=== PATIENT | female | born 1950 | race Caucasian/White ===

== ENCOUNTER → 2016-12-04 | Outpatient (CLI) | payer MEDICARE, OTHER ==
[~2016-12-04] MED LIST: ACID REDUCER20 MG PO; ARICEPT PO; ASPIRIN81 M2 PO; CELEBREX PO; COUMADIN5 MG PO; DURAGESIC100 MCG EXT; FUROSEMIDE40 MG PO; LANTUS SOLOSTAR3 ML SQ; LIPITOR40 MG DOB; NEURONTIN800 MG DOB; VERAPAMIL ER120 MG PO
--- NOTE | ~2016-12-04 | CR150 ---
[facility] A Service of [facility] RADIOLOGY TEXT RESULTS PATIENT: CRISTY GARCIA [facility] UNIT #: [id number] AGE: [address]: Lior Schultz MD SEX: F ORDER DR: [id number] [address] [address] [id number] O MR#: [id number] Acc #: [id number] NAME: CRISTY GARCIA : 1950 SEX: F STUDY DATE/TIME: 12/04/2016 14:22 [facility] ROOM: STUDY DESCRIPTION: CR Hip Min 2 Views Lt Attending Physician: Lior Schultz M.D. Referring Physician: Lior Schultz M.D. Ordering Physician: Physician Non-Staff Primary Care Physician: Fam Michaud Jr., M.D. MEDICAL IMAGING REPORT This report is preliminary unless electronic signature is present. EXAM Left hip series 12/04/16 HISTORY Evaluate for degenerative disc disease. Back problems, fall ruptured discback problems, pain, bilateral hip pain. FINDINGS AP radiograph of the pelvis presented with AP internal-external rotation views of the left hip. There is an inferior vena caval filter incompletely visualized at the L4 vertebral body level. Moderate to marked degenerative change suggested lower lumbar spine. Degenerative changes in the bilateral sacroiliac joints right greater than left. The bony ring of pelvis is intact. There is mild degenerative change suggested in the bilateral hip joints. The bilateral proximal femurs are intact. No acute appearing soft tissue abnormality. There are atherosclerotic arterial calcifications. Visualized bowel gas pattern normal. Dictated by... Fam Trujillo M.D. THIS IS AN ELECTRONICALLY VERIFIED REPORT Fam Trujillo M.D. at 12/05/2016 6:02 PM KANCHAN/zhanna TD: 12/05/2016 13:46 JOB #: [id number] [facility] A Service [facility] RADIOLOGY TEXT RESULTS PATIENT: CRISTY GARCIA [facility] UNIT #: [id number] AGE: [address]: Lior Schultz MD SEX: F ORDER DR: MEDICAL IMAGING REPORT Page 1 of 1
--- NOTE | ~2016-12-04 | CR151 ---
[facility] A Service of [facility] RADIOLOGY TEXT RESULTS PATIENT: CRISTY GARCIA LOCATION: [facility] : 48 UNIT #: [id number] AGE: [address]: Lior Schultz MD SEX: F ORDER DR: [id number] [place] [id number] O MR#: [id number] Acc #: [id number] NAME: CRISTY GARCIA : 1950 SEX: F STUDY DATE/TIME: 12/04/2016 14:22 UNIT: [facility] ROOM: STUDY DESCRIPTION: CR Hip Min 2 Views Rt Attending Physician: Lior Schultz M.D. Referring Physician: Lior Schultz M.D. Ordering Physician: Physician Non-Staff Primary Care Physician: Fam Michaud Jr., M.D. MEDICAL IMAGING REPORT This report is preliminary unless electronic signature is present. EXAM Right hip series 12/04/2016 HISTORY Evaluate degenerative disc disease. Fall at the 5 ruptured disc 60ZE problems, back problems for years. Bilateral hip pain. FINDINGS AP views of the right hip are presented. The visualized bony pelvis shows no acute-appearing abnormality. Degenerative change is suggested in the sacroiliac joints. Mild degenerative change right hip joint. No fracture. No malalignment. Vascular calcifications. Bowel gas pattern normal in visualized extent. Dictated by... Fam Trujillo M.D. THIS IS AN ELECTRONICALLY VERIFIED REPORT Fam Trujillo M.D. at 12/05/2016 6:04 PM Huma TD: 12/05/2016 12:48 JOB #: [id number] MEDICAL IMAGING REPORT Page 1 of 1
== END | disposition home or self-care (01) ==
LOC: SRAD 14:18
DX: M16.0 Bilateral primary osteoarthritis of hip (principal); M54.9 Dorsalgia, unspecified
CPT/HCPCS: 73502

== ENCOUNTER → 2017-01-21 | Outpatient (CLI) | payer MEDICARE, OTHER ==
--- NOTE | ~2017-01-21 | XA30 ---
[facility] A Service of [facility] RADIOLOGY TEXT RESULTS PATIENT: CRISTY GARCIA LOCATION: [facility] : 48 UNIT #: [id number] AGE: [address]: Lior Schultz MD SEX: F ORDER DR: [id number] [facility] [address] [place], [place] [address] [id number] O MR#: [id number] Acc #: [id number] NAME: CRISTY GARCIA : 1950 SEX: F STUDY DATE/TIME: 01/21/2017 13:09 UNIT: [facility] ROOM: STUDY DESCRIPTION: XA Arthrocentesis Major Joint Attending Physician: Lior Schultz M.D. Referring Physician: Lior Schultz M.D. Ordering Physician: Diogo Schultz Primary Care Physician: Fam Michaud Jr., M.D. MEDICAL IMAGING REPORT This report is preliminary unless electronic signature is present EXAM Right hip injection. INDICATION Right hip pain. PROCEDURE The risks, benefits and alternatives to the procedure were explained to the patient, and signed informed consent was obtained. She was placed supine on the angiographic table. Appropriate site overlying the right femoral head and neck junction was selected. Overlying skin was marked. The patient was prepped and draped in the usual sterile fashion. Time-out was performed as per protocol. Skin and kidneys tissues were anesthetized with buffered lidocaine. A 22-gauge spinal needle was advanced in the joint space. Contrast was injected, which confirmed location within the joint space. I then injected a combination of lidocaine, bupivacaine and a Depo-Medrol. The needle was removed and pressure was applied until hemostasis was obtained. IMPRESSION Technically successful fluoroscopically-guided right hip injection as noted. Fluoroscopy was used during the procedure and permanent images were saved. Total fluoroscopy time 0.2 minutes, AK was 9 mGy. Dictated by... Monique Jordan M.D. THIS IS AN ELECTRONICALLY VERIFIED REPORT Monique Jordan M.D. at 01/24/2017 5:39 PM AFF/gz TD: 01/23/2017 13:35 JOB #: [id number] [facility] A Service of [facility] RADIOLOGY TEXT RESULTS PATIENT: CRISTY GARCIA LOCATION: [facility] #: [id number] : 48 UNIT #: [id number] AGE: [address]: Lior Schultz MD SEX: F ORDER DR: MEDICAL IMAGING REPORT Page 1 of 1 COPY
== END | disposition home or self-care (01) ==
LOC: CIVR 12:37
DX: M16.0 Bilateral primary osteoarthritis of hip (principal)
CPT/HCPCS: 77002; J1030; Q9967